=== PATIENT | male | born 1975 | race African-American/Black ===

== ENCOUNTER 2019-09-17 22:37 | Emergency (ER) | payer OTHER ==
[~2019-09-17] VITALS: Ht 185.4 cm; Wt 102.1 kg
[2019-09-17 22:43] VITALS: BP 156/116
[2019-09-17] MEDS ORDERED: NACL 0.9% 1,000 ML IV SCH (22:54)
--- NOTE | 2019-09-17 23:13 | NUR ---
RT AT BEDSIDE DRAWING ABG
[2019-09-17 23:17] LABS: BASOPHILS % (AUTO) 0.3 % (0.0-2.0); EOSINOPHILS % (AUTO) 0.2 % (0.0-4.0); HEMATOCRIT 54.6 % (36-52); HEMOGLOBIN 18.4 g/dL (12.0-18.0); LYMPHOCYTES % (AUTO) 26.5 % (20.5-51.1); MEAN CORPUSCULAR HEMOGLOBIN 30 pg (27-31); MEAN CORPUSCULAR HGB CONC 34 g/dL (33-37); MEAN CORPUSCULAR VOLUME 88.7 fL (80-94); MONOCYTES # (AUTO) 0.6 K/uL (0.8-1.0); MONOCYTES % (AUTO) 8.1 % (1.7-9.3); NEUTROPHILS # (AUTO) 4.9 K/uL (1.8-7.7); NEUTROPHILS % (AUTO) 64.9 % (42.2-75.2); PLATELET COUNT (AUTO) 225 K/uL (140-450); RED BLOOD CELL COUNT(AUTO) 6.16 MIL/uL (4.20-6.10); RED CELL DISTRIBUTION WIDTH 14.4 % (11.6-13.7); WHITE BLOOD COUNT (AUTO) 7.5 K/uL (4.8-10.8)
--- NOTE | 2019-09-17 23:18 | NUR ---
44 Y/O MALE PRESENTS TO ED, C/O POLYDIPSIA AND POLYURIA. PT STATES SYMPTOMS STARTED A COUPLE OF DAYS AGO. PT DENIES ANY HX OF DM. BS DURING TRIAGE ASSESSMENT WAS 568. PT AOX4. DENIES ANY PAIN. STATES FEELING ANXIOUS; TACHYCARDIC. DENIES SOB. ERMD AWARE. WILL CONTINUE TO MONITOR.
[2019-09-17] MEDS ORDERED: NACL 0.9% 3,000 ML IV ONE (23:30)
[2019-09-17] MEDS ORDERED: KCL 20 MEQ/WATER INJ PREMIX 100 ML IV ONE (23:30)
[2019-09-17] MEDS ORDERED: INSULIN REGULAR, HUMAN 100 UNIT/ML VIAL IVP ONE (23:30)
[2019-09-17 23:44] LABS: APPEARANCE,URINE CLEAR (CLEAR); BILIRUBIN,URINE 1+ (NEGATIVE); BLOOD, URINE 1+ (NEGATIVE); COLOR,URINE YELLOW (YELLOW); LEUKOCYTE ESTERASE ,URINE NEGATIVE (NEGATIVE); NITRITE, URINE NEGATIVE (NEGATIVE); PH,URINE 5.5 (5.0-9.0); UGLUCOSE 3+ (NEGATIVE)
[2019-09-17 23:52] LABS: ALBUMIN 3.6 g/dL (3.4-5.0); ANION GAP 30.3 (8-16); CARBON DIOXIDE 12.5 mmol/L (21-32); CREATININE 1.7 mg/dL (0.6-1.3); POTASSIUM 4.8 mmol/L (3.5-5.1); TOTAL BILIRUBIN 0.7 mg/dL (0.0-1.0)
[2019-09-18] MEDS ORDERED: INSULIN REGULAR, HUMAN 100 UNIT in NACL 0.9% 100 ML IV ONE ×2
[2019-09-18 00:19] LABS: RBC,URINE 0-5 /HPF (0-5); WBC,URINE 0-5 /HPF (0-5)
[2019-09-18 00:20] LABS: URINE AMORPHOUS URATE 1+ /HPF (None Seen)
--- NOTE | 2019-09-18 01:45 | NUR ---
SPOKE WITH ERIN CANTOR AT [facility]. GAVE REPORT ON PT. ETA FOR [facility] IS 45-60 MINS.
[2019-09-18 02:35] VITALS: BP 151/96
--- NOTE | 2019-09-18 02:35 | NUR ---
PT DISCHARGED AND TRANSFERRED TO [facility] VIA [facility]. REPORT GIVEN TO [facility] AND RN. PT AT STABLE CONDITION.
--- NOTE | 2019-09-18 13:47 | NUR ---
Late entry. Confirmed with RN that 0.9 NS IV ended at 8190
--- NOTE | 2019-09-18 13:47 | NUR ---
Late entry. Confirmed with RN that KCL IV ended at 0145
--- NOTE | 2019-09-18 16:58 | NUR ---
Late entry. Confirmed with RN that 0.9 NS IV ended at 0100 and insulin IV ended at 0235
== END 2019-09-18 02:35 | disposition short-term general hospital (02) ==
LOC: MED 22:37
DX: R10.84 Generalized abdominal pain (principal); E11.10 Type 2 diabetes mellitus with ketoacidosis without coma; E86.0 Dehydration; A41.9 Sepsis, unspecified organism
CPT/HCPCS: 36415; 36600; 71045; 80053; 81001; 82009; 82803; 82948; 83605; 84484; 85025; 87040; 93005; 96365; 96366; 96368; 96375; 99291; J1815; J3480; J7030

== ENCOUNTER 2021-10-19 14:32 | Inpatient (IN) | payer OTHER ==
[~2021-10-19] VITALS: Ht 182.9 cm; Wt 94.3 kg
[2021-10-19] MEDS: NACL 0.9% 1,000 ML IV SCH ×2 (00:30→20:30)
[2021-10-19 14:41] VITALS: BP 190/115
[2021-10-19] MEDS ORDERED: NACL 0.9% 2,000 ML IV SCH (15:15)
[2021-10-19 15:57] LABS: BASOPHILS % (AUTO) 0.1 % (0.0-2.0); EOSINOPHILS % (AUTO) 0.2 % (0.0-4.0); HEMOGLOBIN 17.7 g/dL (12.0-18.0); LYMPHOCYTES # (AUTO) 2.1 K/uL (2.0-11.5); LYMPHOCYTES % (AUTO) 16.7 % (20.5-51.1); MEAN CORPUSCULAR HEMOGLOBIN 34 pg (27-31); MEAN CORPUSCULAR HGB CONC 39 g/dL (33-37); MEAN CORPUSCULAR VOLUME 89.1 fL (80-94); MONOCYTES # (AUTO) 1.3 K/uL (0.8-1.0); MONOCYTES % (AUTO) 10.1 % (1.7-9.3); NEUTROPHILS # (AUTO) 9.2 K/uL (1.8-7.7); NEUTROPHILS % (AUTO) 72.9 % (42.2-75.2); PLATELET COUNT (AUTO) 292 K/uL (140-450); RED BLOOD CELL COUNT(AUTO) 5.16 MIL/uL (4.20-6.10); RED CELL DISTRIBUTION WIDTH 15.5 % (11.6-13.7); WHITE BLOOD COUNT (AUTO) 12.6 K/uL (4.8-10.8)
--- NOTE | 2021-10-19 16:01 | NUR ---
46/M BIB SELF WITH C/O GENERALIZED WEAKNESS AND FATIGUE X3 WEEKS. STATES HX OF DM AND HTN BUT HAS NOT BEEN ABLE TO FOLLOW UP WITH HIS PCP. DENIES CP, SOB, DIZZINESS OR VISION. PT STATES HE HAS ABDONIMAL CRAMPING BUT NOT MUCH PAIN. NO N/V/DIAHRREA. PT IS TACHYCARDIC AND HYPERTENSIVE ON ASSESSMENT. IV PLACED IN L AC. PT PLACED ON DISPOSAL PLANT OPERATOR AND PULSE OX. EKG SHOWED NORMAL SINUS RHYTHEM. PT HAS NOT HAD INSULIN IN 2 MONTHS AND LISIOPRIL IN 2-3 DAYS. ON TRIAGE PTS BLOOD SUGAR WAS 400. PT RESTING IN BED. PMH: HTN, DM NKA
[2021-10-19 16:24] LABS: ANION GAP 29.8 (8-16); ASPARTATE AMINOTRANSFERASE 24 U/L (15-37); CHLORIDE 93 mmol/L (98-107); GFR ARICAN-AMERICAN 103 mL/min (>90); POTASSIUM 4.8 mmol/L (3.5-5.1); SODIUM SERUM 129 mmol/L (136-145); TOTAL BILIRUBIN 0.7 mg/dL (0.0-1.0); UREA NITROGEN, BLOOD 14 mg/dL (7-18)
[2021-10-19 16:37] LABS: GLUCOSE 403 mg/dL (74-106)
[2021-10-19] MEDS: BLOOD GLUCOSE MONITORING 1 DEV DEV FS SCH ×7 (16:45→23:00)
[2021-10-19] MEDS ORDERED: DEXTROSE 50% 50 ML SYR IVP PRN (16:45)
[2021-10-19] MEDS ORDERED: INSULIN REGULAR, HUMAN 100 UNIT/ML VIAL IV ONE (16:50)
[2021-10-19] MEDS ORDERED: NACL 0.9% 1,000 ML IV ONE (16:50)
--- NOTE | 2021-10-19 17:22 | NUR ---
SAURABH AND URINE WALKED TO LAB
[2021-10-19 17:49] LABS: APPEARANCE,URINE CLEAR (CLEAR); BILIRUBIN,URINE 1+ (NEGATIVE); BLOOD, URINE 1+ (NEGATIVE); COLOR,URINE YELLOW (YELLOW); LEUKOCYTE ESTERASE ,URINE NEGATIVE (NEGATIVE); NITRITE, URINE NEGATIVE (NEGATIVE); PH,URINE 5.5 (5.0-9.0); UGLUCOSE 3+ (NEGATIVE)
[2021-10-19 18:10] LABS: RBC,URINE 0-5 /HPF (0-5); WBC,URINE NONE SEEN /HPF (0-5)
[2021-10-19] MEDS ORDERED: ACETAMINOPHEN 325 MG TAB PO PRN (18:15)
[2021-10-19] MEDS ORDERED: ONDANSETRON 4 MG/2 ML VIAL IVP PRN (18:15)
[2021-10-19] MEDS ORDERED: KCL 20 MEQ/WATER INJ PREMIX 100 ML IV PRN (18:20)
[2021-10-19] MEDS ORDERED: CLONIDINE HYDROCHLORIDE 0.1 MG TAB PO PRN (18:30)
[2021-10-19] MEDS: INSULIN REGULAR, HUMAN 100 UNIT in NACL 0.9% 100 ML IV SCH ×4 (18:44→19:09)
--- NOTE | 2021-10-19 18:54 | NUR ---
Patient appears to be resting comfortably in bed. Vital Signs within normal limits. Respirations even and unlabored on RA. AOX4, able to make all needs known. all needs met at this time. Safety measures in place.
--- NOTE | 2021-10-19 19:23 | NUR ---
Pt report given to DEVAUGHN Moctezuma. Transfer of care at this time.
--- NOTE | 2021-10-19 19:30 | NUR ---
pt is awake and alert. equal rise and fall of chest wall. vss. all needs met at this time. bed locked in lowest position, side rails x2 for safety. pt has been updated on transfer to icu after shift change.
--- NOTE | 2021-10-19 20:11 | NUR ---
Patient will be admitted to care of . Admited to ICU. Will go to room ICU 8. Belongings list completed. Report to DEVAUGHN POLANCO.
--- NOTE | 2021-10-19 20:11 | NUR ---
PT MOVED TO ICU DEPARTMENT
--- NOTE | 2021-10-19 20:30 | NUR ---
RECEIVED PT. FROM ER ALERT, AWAKE, ORIENTED AND AMBULATORY. CONT. ON INSULIN DRIP WITH SLIDING SCALE PROTOCOL PER MD ORDERED. ON ROOM AIR WITH RESPIRATIONS EVEN AND UNLABORED. CONT. ON FIRST ASSISTANT. IV SITE TO THE JUAREZ 18G WITH INSULIN DRIP, JEANIE 18G WITH IVF NS 250ML EVERY 4 HRS. BOWEL SOUNDS ON ALL 4 QUADRANTS. ABLE TO GO THE RESTROOM INDEPENDENTLY. ABLE TO MAKE ALL NEEDS KNOWN. INITIAL ASSESSMENT DONE.SAFETY MEASURES IN PLACE. PATIENTS RESTING COMFORTABLY IN BED. WILL CONT. TO MONITOR.
[2021-10-19 21:35] LABS: ANION GAP 20.7 (8-16); CARBON DIOXIDE 15.9 mmol/L (21-32); CREATININE 0.7 mg/dL (0.6-1.3); POTASSIUM 4.6 mmol/L (3.5-5.1)
[2021-10-19 21:50] VITALS: BP 165/104
[2021-10-19 22:00] VITALS: BP 166/106
[2021-10-19 23:00] VITALS: BP 144/97
[2021-10-20] VITALS (15 sets, daily range): BP systolic 123–165; BP diastolic 82–109
[2021-10-20] MEDS ORDERED: cefTRIAXone 1,000 MG VIAL ONE (01:05)
[2021-10-20 01:26] LABS: ANION GAP 24.3 (8-16); CARBON DIOXIDE 11.7 mmol/L (21-32); CREATININE 0.6 mg/dL (0.6-1.3)
[2021-10-20] MEDS: BLOOD GLUCOSE MONITORING 1 DEV DEV FS SCH ×19 (02:00→17:59)
[2021-10-20] MEDS: NACL 0.9% 1,000 ML IV SCH ×5 (02:15→17:45)
[2021-10-20 04:54] LABS: PHOSPHORUS 2.9 mg/dL (2.5-4.9)
[2021-10-20 04:56] LABS: BASOPHILS # (AUTO) 0.1 K/uL (0.00-0.22); BASOPHILS % (AUTO) 0.6 % (0.0-2.0); EOSINOPHILS % (AUTO) 0.5 % (0.0-4.0); HEMOGLOBIN 13.5 g/dL (12.0-18.0); LYMPHOCYTES # (AUTO) 1.7 K/uL (2.0-11.5); LYMPHOCYTES % (AUTO) 19.7 % (20.5-51.1); MEAN CORPUSCULAR HEMOGLOBIN 31 pg (27-31); MEAN CORPUSCULAR HGB CONC 35 g/dL (33-37); MEAN CORPUSCULAR VOLUME 89.2 fL (80-94); MONOCYTES # (AUTO) 0.6 K/uL (0.8-1.0); MONOCYTES % (AUTO) 6.7 % (1.7-9.3); NEUTROPHILS # (AUTO) 6.3 K/uL (1.8-7.7); NEUTROPHILS % (AUTO) 72.5 % (42.2-75.2); PLATELET COUNT (AUTO) 184 K/uL (140-450); RED BLOOD CELL COUNT(AUTO) 4.37 MIL/uL (4.20-6.10); RED CELL DISTRIBUTION WIDTH 15.2 % (11.6-13.7); WHITE BLOOD COUNT (AUTO) 8.7 K/uL (4.8-10.8)
--- NOTE | 2021-10-20 05:00 | NUR ---
LAB AT THE BEDSIDE, PT. AWAKE, ALERT, ORIENTED AND COOPERATIVE. NO C/O PAIN AT THIS TIME. REPOSITIONED SELF. WILL CONT. TO MONITOR.
[2021-10-20 05:25] LABS: ANION GAP 21.8 (8-16); CARBON DIOXIDE 12.8 mmol/L (21-32); CREATININE 0.6 mg/dL (0.6-1.3); POTASSIUM 3.6 mmol/L (3.5-5.1)
--- NOTE | 2021-10-20 07:30 | NUR ---
RECEIVED BEDSIDE REPORT FROM PARTS CLASSIFIER NURSE FOR CONTINUOUS OF CARE, PT RESTING, NO DISTRESS NOTED, ALERT ORIENTED, AWAKE ABLE TO LET NEEDS KNOWN. PT ON ROOM AIR, NO SOB NOTED, SATURATING @ 99%. IV TO RIGHT AC 18G PATENT INTACT, AND IV TO LEFT AC 18G PATENT INTACT, INFUSING INSULIN DRIP @ 1UNIT/HR, INFUSING WELL, AND NS @ 250ML/HR, INFUSING WELL. INITIAL ASSESSMENT DONE, ALL SAFETY PRECAUTION MET, CALL LIGHT WITHIN REACH, WILL CONTINUE TO MONITOR.
[2021-10-20] MEDS ORDERED: DEXTROSE 50% 50 ML SYR IVP PRN (07:45)
[2021-10-20] MEDS: DEXT 5% / NACL 0.45% 1,000 ML IV SCH ×3 (07:45→17:45)
[2021-10-20] MEDS ORDERED: INSULIN REGULAR, HUMAN 100 UNIT in NACL 0.9% 100 ML IV SCH ×2 (07:45)
[2021-10-20] MEDS: lisinopriL 20 MG TAB PO SCH (08:15)
--- NOTE | 2021-10-20 08:15 | NUR ---
DUE MEDICATIONS ADMINISTERED, PT TOLERATED WELL, WILL CONTINUE TO MONITOR.
[2021-10-20 08:34] LABS: ANION GAP 23.3 (8-16); CARBON DIOXIDE 11.4 mmol/L (21-32); CREATININE 0.7 mg/dL (0.6-1.3); POTASSIUM 3.7 mmol/L (3.5-5.1)
--- NOTE | 2021-10-20 12:08 | NUR ---
DC PLANNIN YRS OLD MALE PATIENT WAS ADMITTED FROM HOME WITH A DX OF DKA. PATIENT HAS A HX OF DM, HTN. ANION GAP 29.8-21.8. CXR (-) RAPID COVID TEST NEGATIVE . ADMINISTERED IVF, INSULIN DRIP. CONSULTED WITH CRITICAL CARE DRGÓMEZ. DC PLAN TO GO HOME WHEN STABLE. CM TO FOLLOW
--- NOTE | 2021-10-20 13:00 | NUR ---
DR GODINEZ AT BEDSIDE TALKING TO PT
[2021-10-20 13:04] LABS: ANION GAP 14.4 (8-16); CARBON DIOXIDE 20.9 mmol/L (21-32); CREATININE 0.7 mg/dL (0.6-1.3); POTASSIUM 3.3 mmol/L (3.5-5.1)
--- NOTE | 2021-10-20 13:30 | NUR ---
DR. EASTMAN AT BEDSIDE.
--- NOTE | 2021-10-20 13:31 | NUR ---
PATIENT HAS BEEN SCREENED AND CATEGORIZED HIGH NUTRITION RISK. PATIENT WILL BE SEEN WITHIN 1-2 DAYS OF ADMISSION. 10/21/21 REVIEWED BY JAVIER DEUTSCH RD
--- NOTE | 2021-10-20 16:00 | NUR ---
DC PLANNING PATIENT IS 46-YEAR-OLD MALE ADMITTED ON THE [facility]/ED ON 10/19/2021. DUE TO GENERALIZED WEAKNESS OVER THE PAST 2-3 WEEKS.PATIENT HAS MEDICAL HISTORY OF MELLITUS TYPE 2 DIABETES,AND HYPERTENSION PATIENT IS ON LISINOPRIL AND INSULIN BUT IS NOT MEDICATION COMPLIANT DUE TO BEEN ABLE TO SEE HIS PCP FOR OVER THREE MONTHS. DUE TO INS. PROVIDER. IRASEMA MET WITH PATIENT AT BEDSIDE TO DISCUSS AND GATHER HIS COLLATERAL INFORMATION. PATIENT REPORTED LIVING AT HOME WITH HIS 26 YEAR OLD DAUGHTER AND 16 YEAR OLD SON IN [facility]. PATIENT STATED THAT HIS MOTHER MARLA RIDDLE IS HIS EMERGENCY CONTACT AND MEDICAL DECISION MAKER. PATIENT STATED NOT HAVING ADVANCE DIRECTIVES,AND PATIENT WAS INTERESTED ON GETTING A.D. INF. FORMS PROVIDED BY IRASEMA. PATIENT REPORTED HAVING ISSUES GETTING HIS MEDICATIONS BECAUSE HE RECENTLY CHANGE HIS INSURANCE PROVIDER AND HIS PCP HAS NOT BEEN ABLE TO GET HIM AN APPOINTMENT TO SEE HIM ONE TO ONE TO BE ABLE TO PRESCRIBE HIM HIS INSULIN MEDS. AFTER DISCUSSING WITH PATIENT HE WAS ABLE TO GET HIS PCP APPOINTMENT ON 11/07/2021.PER PATIENT HE WILL GET HIS MEDICATIONS FROM THE [facility] NEAR HIS HOME PHARMACY WHICH IS NEAR HIS HOME. PATIENT STATED NOT HAVING OR NEEDING DME AT HOME AND BEEN ACTIVE AND INDEPENDENT. PATIENT STATED THAT HE WILL DRIVE HIM SELF HOME AFTER DISCHARGE FROM [facility]. IRASEMA. WILL FOLLOW UP NEEDED.
[2021-10-20 16:45] LABS: ANION GAP 15.2 (8-16); CARBON DIOXIDE 21.1 mmol/L (21-32); CREATININE 0.6 mg/dL (0.6-1.3); POTASSIUM 4.3 mmol/L (3.5-5.1)
--- NOTE | 2021-10-20 17:10 | NUR ---
CALLED DR GODINEZ REGARDING PT ANION GAPS, PER DR TO ORDER LANTUS 15UNIT THEN STOP INSULIN DRIP IN 2 HOURS AFTER LANTUS IS GIVEN, THEN TRANSITION PT TO LANTUS 15 UNITS BID WITH SLIDING SCALE. WILL CONTINUE WITH ORDERS.
[2021-10-20] MEDS: INSULIN LANTUS 100 UNITS/ML 10 ML VIAL SUBQ SCH ×2 (17:20→21:36)
--- NOTE | 2021-10-20 19:16 | NUR ---
ENDORSED PT TO GRANULATING BLENDER NURSE FOR CONTINUOUS OF CARE.
--- NOTE | 2021-10-20 19:30 | NUR ---
RECEIVED REPORT AT BEDSIDE FROM DAY SHIFT RN FOR CONTINUITY OF CARE. PT RESTING, NO DISTRESS NOTED, ALERT ORIENTED, AWAKE ABLE TO LET NEEDS KNOWN. PT ON ROOM AIR, NO SOB NOTED, SATURATING @ 100%. IV TO RIGHT AC 18G PATENT INTACT, AND IV TO LEFT AC 18G PATENT INTACT, INFUSING INSULIN DRIP @ 1UNIT/HR, INFUSING WELL, AND NS @ 250ML/HR, INFUSING WELL. INITIAL ASSESSMENT COMPLETED. SAFETY MEASURES IN PLACE, WITH CALL LIGHT IN REACH AND BED IN LOWEST POSITION. WILL CONTINUE TO MONITOR.
--- NOTE | 2021-10-20 19:41 | NUR ---
PT LAYING IN BED HOB ELEVATED, ANTERIOR AUSCULTATIONS REVEALED VESICULAR BS CLEAR THROUGHOUT ALL LUNG BAUTISTA, NO SIGNS OF RESPIRATORY DISTRESS NOTED AT THIS TIME PT IS CURRENTLY SATING 99% ON RA. WILL CONTINUE TO MONITOR.
--- NOTE | 2021-10-20 19:45 | NUR ---
BS READ @ 183. BS CHECK ORDERS CHANGED TO ACHS PER MD. FLUIDS DC AND ORDERS PUT IN FOR SLIDING SCALE. WILL CONTINUE TO MONITOR
[2021-10-20 20:56] LABS: ANION GAP 12.8 (8-16); CARBON DIOXIDE 22.7 mmol/L (21-32); CREATININE 0.7 mg/dL (0.6-1.3); POTASSIUM 4.5 mmol/L (3.5-5.1)
[2021-10-20] MEDS ORDERED: BLOOD GLUCOSE MONITORING 1 DEV DEV FS SCH (21:00)
[2021-10-21] VITALS: BP 146/92
--- NOTE | 2021-10-21 00:30 | NUR ---
46/M [facility] ECONOMIC RESEARCH ANALYST [place] TRANSFER FROM ICU WITH DX OF DKA. A&OX4. VERBALLY RESPONSIVE AND ABLE TO COMMUNICATE NEEDS. VSS. HEAD TO TOE ASSESSMENT COMPLETED WITH CHARGE NURSE KETAN. PER PATIENT, CHIEF COMPLAINT WAS GENERAL WEAKNESS X 2-3 WEEKS DUE TO NOT BEING ABLE TO TAKE INSULIN BECAUSE PATIENT SWITCHED PCP. PATIENT HAS BEEN DOWNGRADED TO MEDSURG PER MD ORDER. PATIENT IS AMBULATORY AND CONTINENT OF VOID AND BM. SKIN IS INTACT. PERSONAL BELONGINGS AT BEDSIDE. ID BAND ON. ORIENTED PATIENT TO CALL LIGHT, BED CONTROL, BR, TV, AND LIGHT SWITCH. PROVIDED PATIENT WITH TOWELS, SOAP, AND HYGIENE EQUIPMENT PER REQUEST FOR SHOWER. SNACKS PROVIDED PER PATIENT REQUEST.
[2021-10-21 01:08] LABS: ANION GAP 20.5 (8-16); CARBON DIOXIDE 15.1 mmol/L (21-32); CREATININE 0.7 mg/dL (0.6-1.3); POTASSIUM 3.6 mmol/L (3.5-5.1)
--- NOTE | 2021-10-21 02:30 | NUR ---
PATIENT IS STABLE AND ASLEEP. CHEST IS RISING AND FALLING EVENLY. RESPIRATIONS EVEN AND UNLABORED WITH NO APPARENT S/SX OF ACUTE DISTRESS. WHITE COMMUNICATION BOARD UPDATED. ALL SAFETY MEASURES IN PLACE. CALL LIGHT WITHIN REACH. WILL CONTINUE TO MONITOR.
[2021-10-21 04:00] VITALS: BP 139/86
--- NOTE | 2021-10-21 04:30 | NUR ---
ANSWERED CALL LIGHT. PROVIDED SNACKS PER PATIENT REQUEST. PER PATIENT, HE WOULD LIKE TO REQUEST PREFERRED BREAKFAST MENU. WROTE DOWN PATIENT'S PREFERENCE AND WILL CONTACT DIETARY WHEN THEY OPEN AT 0600.
[2021-10-21 05:54] LABS: ANION GAP 15.1 (8-16); CARBON DIOXIDE 20.9 mmol/L (21-32); CREATININE 0.7 mg/dL (0.6-1.3)
--- NOTE | 2021-10-21 06:05 | NUR ---
CALLED [facility] DEPARTMENT. NO ONE ANSWERED. LEFT VOICEMAIL TO CALL BACK.
--- NOTE | 2021-10-21 06:10 | NUR ---
SPOKE WITH SHANIA AT [facility] DEPARTMENT. PER SHANIA, THEY ARE ABLE TO ACCOMMODATE PATIENT'S REQUEST EXCEPT POTATOES. LUNCH PREFERENCE SLIP WILL ALSO BE INCLUDED IN THE TRAY FOR PATIENT TO FILL OUT. WILL LET PATIENT KNOW.
[2021-10-21] MEDS ORDERED: DEXTROSE 50% 50 ML SYR IVP PRN (06:25)
[2021-10-21] MEDS: INSULIN LISPRO SLIDING SCALE 100 UNITS/ML VIAL SUBQ PRN ×2 (06:43→12:21)
--- NOTE | 2021-10-21 07:15 | NUR ---
ENDORSED PATIENT TO DEVAUGHN PARDO FOR CONTINUITY OF CARE. PATIENT IS STABLE.
[2021-10-21] MEDS ORDERED: BLOOD GLUCOSE MONITORING 1 DEV DEV FS SCH (07:30)
--- NOTE | 2021-10-21 07:58 | NUR ---
REPORT FROM NIGHT NURSE PT IN BED RESTING .[id number]
[2021-10-21] MEDS: INSULIN LANTUS 100 UNITS/ML 10 ML VIAL SUBQ SCH (08:52)
[2021-10-21] MEDS: lisinopriL 20 MG TAB PO SCH (09:12)
[2021-10-21 09:18] LABS: ANION GAP 13.5 (8-16); CARBON DIOXIDE 23.1 mmol/L (21-32); CREATININE 0.7 mg/dL (0.6-1.3); POTASSIUM 3.6 mmol/L (3.5-5.1)
[2021-10-21 14:21] LABS: CARBON DIOXIDE 21.5 mmol/L (21-32); CREATININE 0.8 mg/dL (0.6-1.3); POTASSIUM 3.5 mmol/L (3.5-5.1)
[2021-10-21] MEDS ORDERED: INSU100S22 SUBQ ×2 (14:35→15:15)
[2021-10-21] MEDS ORDERED: INSU100V3 SQ ×2 (14:35→15:15)
[2021-10-21] MEDS ORDERED: LISI20TA29 PO ×2 (14:35→15:15)
[2021-10-21 15:30] VITALS: BP 139/86
--- NOTE | 2021-10-21 16:14 | NUR ---
pt discharged home, escorted out walking , discharge instruction given iv line out and hand band taken out. [email or web address]
== END 2021-10-21 16:10 | disposition home or self-care (01) | DRG 420 ==
LOC: MED 14:32 → MTU 18:11 → MIC 18:58 → MTU 10-21 00:04
PROVIDERS: ADMIT Internal Medicine; ATTEND Internal Medicine
DX: E11.10 Type 2 diabetes mellitus with ketoacidosis without coma (principal); E44.0 Moderate protein-calorie malnutrition; E86.0 Dehydration; I10 Essential (primary) hypertension; Z20.822 Contact with and (suspected) exposure to COVID-19; E87.1 Hypo-osmolality and hyponatremia; Z79.4 Long term (current) use of insulin; Z79.899 Other long term (current) drug therapy; Z91.14 Patient's other noncompliance with medication regimen; Z68.28 Body mass index [BMI] 28.0-28.9, adult
CPT/HCPCS: 36415; 71045; 80048; 80053; 81001; 82553; 82803; 82948; 83036; 83605; 83735; 84100; 84484; 85025; 87040; 87081; 87086; 93005; 96361; 96374; 99291; J0696; J1815; J3480; J7030; J7060